=== PATIENT | male | born 1990 | race Caucasian/White ===

== ENCOUNTER 2023-10-10 20:15 | Inpatient (IN) | payer MEDICAID, OTHER ==
[~2023-10-10] VITALS: Ht 167.6 cm; Wt 61.2 kg
[2023-10-10 21:44] LABS: CLARITY URINE CLOUDY (CLEAR); COLOR URINE YELLOW (YELLOW); GLUCOSE URINE NEGATIVE (NEGATIVE); KETONES URINE TRACE (NEGATIVE); LEUKOCYTE ESTERASE URINE 3+ (NEGATIVE); NITRITE URINE NEGATIVE (NEGATIVE); OCCULT BLOOD URINE 3+ (NEGATIVE); PROTEIN URINE 1+ (NEGATIVE); SPECIFIC GRAVITY URINE 1.008 (1.005-1.030); UROBILINOGEN URINE 0.2 E.U./dL (0.2-1.0)
[2023-10-10 22:12] LABS: BACTERIA URINE 2+; SQUAMOUS EPITHELIAL CELL URINE FEW /lpf (RARE/1+)
[2023-10-10 22:13] LABS: WBC URINE 50-100 /hpf (0-2)
[2023-10-10] MEDS: ACETAMINOPHEN 325MG TABLET PO STA (22:31)
[2023-10-10] MEDS: KETOROLAC 30MG/ML VIAL IV STA (22:32)
[2023-10-10] MEDS: SODIUM CHLORIDE 0.9% 1000ML BAG (SEPSIS BOLUS) IV ONE (22:44)
[2023-10-10 23:25] LABS: HEMATOCRIT. 36.3 % (42.0-52.0); HEMOGLOBIN. 12.3 g/dL (14.0-18.0); MEAN CORPUSCULAR HEMOGLOBIN 30.6 pg (28.0-32.0); MEAN CORPUSCULAR HGB CONC 33.8 g/dL (31.0-37.0); MEAN CORPUSCULAR VOLUME 90.6 fL (80.0-94.0); MEAN PLATELET VOLUME 6.9 fl (7.4-10.4); PLATELET 244 x1000/uL (130-400); RED BLOOD CELL COUNT 4.01 mill/uL (4.7-6.1); RED CELL DISTRIBUTION WIDTH 13.6 % (11.6-14.6)
[2023-10-10 23:36] LABS: DIFFERENTIAL COMMENT 1
[2023-10-10 23:42] LABS: CHLORIDE 106 mEq/L (98-107); POTASSIUM 3.2 mEq/L (3.5-5.1); SODIUM 136 mEq/L (136-145)
[2023-10-10 23:43] LABS: CARBON DIOXIDE 25 mEq/L (21-32)
[2023-10-10 23:44] LABS: CALCIUM 8.4 mg/dL (8.7-10.4)
[2023-10-10 23:48] LABS: CREATININE 0.8 mg/dL (0.6-1.3); GLUCOSE 108 mg/dL (70-105)
[2023-10-10 23:49] LABS: UREA NITROGEN BLOOD 11 mg/dL (9-23)
[2023-10-10 23:50] LABS: ALANINE AMINOTRANSFERASE 16 IU/L (10-49); ALBUMIN 3.6 g/dL (3.2-4.8); ASPARTATE AMINOTRANSFERASE 15 IU/L (<34)
[2023-10-10 23:51] LABS: BILIRUBIN TOTAL 1.3 mg/dL (0.1-1.0); PROTEIN TOTAL 5.9 g/dL (6.0-8.3)
[2023-10-11 00:07] LABS: PLATELET ESTIMATE NORMAL
[2023-10-11] MEDS: ONDANSETRON HCL 4MG/2ML INJ IV STA (00:49)
[2023-10-11] MEDS: MORPHINE SULFATE 4 MG/ML INJ (FOR IV/IM USE) IV STA (00:50)
[2023-10-11] MEDS: CEFTRIAXONE 1GM/50ML 50 ML IV ONE (00:58)
[2023-10-11] MEDS: SODIUM CHLORIDE 0.9% 1,000 ML IV ONE (01:11)
[2023-10-11] MEDS: MORPHINE SULFATE 4 MG/ML INJ (FOR IV/IM USE) IV ONE (08:31)
[2023-10-11 10:30] VITALS: BP 110/64; PULSE 116; RESP 20; TEMP 99.7
[2023-10-11 12:00] VITALS: BP 107/62; PULSE 116; RESP 20; TEMP 102.3
[2023-10-11] MEDS ORDERED: ONDANSETRON HCL 4MG/2ML INJ IV PRN (12:15)
[2023-10-11] MEDS: SODIUM CHLORIDE 0.9% 1,000 ML IV SCH (13:05)
[2023-10-11] MEDS: ACETAMINOPHEN 325MG TABLET PO PRN (13:15)
[2023-10-11] MEDS: KETOROLAC 30MG/ML VIAL IV PRN (13:16)
[2023-10-11 16:00] VITALS: BP 110/77; PULSE 97; RESP 20; TEMP 98.2
[2023-10-11] MEDS: GENTAMICIN 120MG PREMIX 100 ML IV SCH (18:18)
[2023-10-11 18:45] VITALS: BP 110/64; PULSE 116; RESP 20; TEMP 99.7
[2023-10-11 20:00] VITALS: BP 95/46; PULSE 108; RESP 18; TEMP 99.3
[2023-10-12] VITALS (7 sets, daily range): BP systolic 97–131; BP diastolic 57–88; PULSE 72–117; RESP 18–20; TEMP 97.6–103.8
[2023-10-12 06:43] LABS: HEMATOCRIT. 37.4 % (42.0-52.0); HEMOGLOBIN. 12.7 g/dL (14.0-18.0); MEAN CORPUSCULAR HEMOGLOBIN 30.3 pg (28.0-32.0); MEAN CORPUSCULAR HGB CONC 33.9 g/dL (31.0-37.0); MEAN CORPUSCULAR VOLUME 89.2 fL (80.0-94.0); PLATELET 222 x1000/uL (130-400); RED BLOOD CELL COUNT 4.19 mill/uL (4.7-6.1); RED CELL DISTRIBUTION WIDTH 13.7 % (11.6-14.6); WHITE BLOOD COUNT 8.3 x1000/uL (4.5-11.0)
[2023-10-12 06:46] LABS: DIFFERENTIAL COMMENT 1
[2023-10-12 07:22] LABS: CARBON DIOXIDE 23 mEq/L (21-32); CHLORIDE 104 mEq/L (98-107); POTASSIUM 3.6 mEq/L (3.5-5.1); SODIUM 134 mEq/L (136-145)
[2023-10-12 07:28] LABS: CREATININE 0.9 mg/dL (0.6-1.3); GLUCOSE 103 mg/dL (70-105); UREA NITROGEN BLOOD 12 mg/dL (9-23)
[2023-10-12 12:01] LABS: CREATINE KINASE 35 IU/L (46-171)
[2023-10-12] MEDS: DILTIAZEM HCL 30MG TABLET PO SCH (13:44)
[2023-10-12 16:28] LABS: PLATELET ESTIMATE NORMAL
[2023-10-13] VITALS: BP 102/74; PULSE 88; RESP 18; TEMP 98.8
[2023-10-13 04:00] VITALS: BP 97/53; PULSE 85; RESP 18; TEMP 101.1
[2023-10-13 04:34] LABS: CALCIUM 9.4 mg/dL (8.7-10.4); CARBON DIOXIDE 22 mEq/L (21-32); CHLORIDE 103 mEq/L (98-107); POTASSIUM 3.4 mEq/L (3.5-5.1); SODIUM 133 mEq/L (136-145)
[2023-10-13 04:38] LABS: CREATININE 0.9 mg/dL (0.6-1.3); GLUCOSE 100 mg/dL (70-105)
[2023-10-13 04:40] LABS: UREA NITROGEN BLOOD 13 mg/dL (9-23)
[2023-10-13 04:44] LABS: GENTAMICIN RANDOM < 0.5 ug/mL
[2023-10-13 08:00] VITALS: BP 115/71; PULSE 85; RESP 18; TEMP 98.9
[2023-10-13 12:00] VITALS: BP 95/59; PULSE 83; RESP 20; TEMP 100
[2023-10-13 16:00] VITALS: BP 110/68; PULSE 81; RESP 20; TEMP 100
[2023-10-13 18:07] LABS: HEMATOCRIT. 37.7 % (42.0-52.0); HEMOGLOBIN. 12.8 g/dL (14.0-18.0); MEAN CORPUSCULAR HEMOGLOBIN 30.6 pg (28.0-32.0); MEAN CORPUSCULAR HGB CONC 33.8 g/dL (31.0-37.0); MEAN CORPUSCULAR VOLUME 90.3 fL (80.0-94.0); MEAN PLATELET VOLUME 7.8 fl (7.4-10.4); PLATELET 267 x1000/uL (130-400); RED BLOOD CELL COUNT 4.18 mill/uL (4.7-6.1); RED CELL DISTRIBUTION WIDTH 13.9 % (11.6-14.6); WHITE BLOOD COUNT 5.3 x1000/uL (4.5-11.0)
[2023-10-13 18:24] LABS: DIFFERENTIAL COMMENT 1
[2023-10-13 18:30] LABS: CARBON DIOXIDE 25 mEq/L (21-32); CHLORIDE 104 mEq/L (98-107); POTASSIUM 3.5 mEq/L (3.5-5.1); SODIUM 135 mEq/L (136-145)
[2023-10-13 18:31] LABS: CALCIUM 9.9 mg/dL (8.7-10.4)
[2023-10-13 18:35] LABS: CREATININE 0.9 mg/dL (0.6-1.3)
[2023-10-13 18:36] LABS: GLUCOSE 103 mg/dL (70-105); UREA NITROGEN BLOOD 14 mg/dL (9-23)
[2023-10-13 20:00] VITALS: BP 113/73; PULSE 80; RESP 18; TEMP 99.6
[2023-10-13 20:05] LABS: PLATELET ESTIMATE NORMAL
[2023-10-14] VITALS: BP 105/57; PULSE 90; RESP 18; TEMP 100.7
[2023-10-14 04:00] VITALS: BP 90/52; PULSE 63; RESP 18; TEMP 98.5
[2023-10-14 04:55] LABS: CHLORIDE 104 mEq/L (98-107); POTASSIUM 3.4 mEq/L (3.5-5.1); SODIUM 136 mEq/L (136-145)
[2023-10-14 04:56] LABS: CALCIUM 9.3 mg/dL (8.7-10.4); CARBON DIOXIDE 25 mEq/L (21-32)
[2023-10-14 05:01] LABS: CREATININE 0.9 mg/dL (0.6-1.3); GLUCOSE 102 mg/dL (70-105); UREA NITROGEN BLOOD 11 mg/dL (9-23)
[2023-10-14 05:33] LABS: HEMATOCRIT. 35.4 % (42.0-52.0); HEMOGLOBIN. 11.8 g/dL (14.0-18.0); MEAN CORPUSCULAR HEMOGLOBIN 29.7 pg (28.0-32.0); MEAN CORPUSCULAR HGB CONC 33.3 g/dL (31.0-37.0); MEAN CORPUSCULAR VOLUME 89.3 fL (80.0-94.0); MEAN PLATELET VOLUME 8.1 fl (7.4-10.4); PLATELET 260 x1000/uL (130-400); RED BLOOD CELL COUNT 3.97 mill/uL (4.7-6.1); RED CELL DISTRIBUTION WIDTH 13.9 % (11.6-14.6); WHITE BLOOD COUNT 4.6 x1000/uL (4.5-11.0)
[2023-10-14 06:16] LABS: DIFFERENTIAL COMMENT 1
[2023-10-14 07:59] VITALS: BP 112/77; PULSE 72; RESP 18; TEMP 100
[2023-10-14 12:00] VITALS: BP 106/68; PULSE 82; RESP 18; TEMP 100.4
[2023-10-14 13:32] LABS: PLATELET ESTIMATE NORMAL
[2023-10-14] MEDS: CEFTRIAXONE 1GM/50ML 50 ML IV SCH (14:23)
[2023-10-14 16:00] VITALS: BP 115/75; PULSE 81; RESP 20; TEMP 99
[2023-10-14 20:00] VITALS: BP 92/62; PULSE 76; RESP 18; TEMP 97.7
[2023-10-15] VITALS: BP 99/65; PULSE 77; RESP 20; TEMP 97.6
[2023-10-15 04:00] VITALS: BP 98/66; PULSE 63; RESP 19; TEMP 98
[2023-10-15 08:00] VITALS: BP 94/62; PULSE 61; RESP 19; TEMP 97.9
[2023-10-15 12:00] VITALS: BP 92/64; PULSE 68; RESP 19; TEMP 97.7
[2023-10-15 16:00] VITALS: BP 91/60; PULSE 71; RESP 19; TEMP 98.8
[2023-10-15 20:00] VITALS: BP 104/71; PULSE 67; RESP 18; TEMP 98
[2023-10-16] VITALS: BP 95/56; PULSE 55; RESP 18; TEMP 98
[2023-10-16 04:00] VITALS: BP 107/63; PULSE 63; RESP 18; TEMP 98.2
[2023-10-16 08:00] VITALS: BP 96/57; PULSE 58; RESP 18
[2023-10-16 12:00] VITALS: BP 98/67; PULSE 66; RESP 18; TEMP 99.9
[2023-10-16 16:00] VITALS: BP 99/68; PULSE 62; RESP 18; TEMP 98.6
[2023-10-16 20:00] VITALS: BP 94/57; PULSE 61; RESP 18; TEMP 97.2
[2023-10-17] VITALS: BP 92/66; PULSE 67; RESP 19; TEMP 98.3
[2023-10-17 04:00] VITALS: BP 93/58; PULSE 62; RESP 19; TEMP 98.3
[2023-10-17 08:00] VITALS: BP 139/78; PULSE 58; RESP 20; TEMP 99.3
[2023-10-17 12:00] VITALS: BP 130/73; PULSE 64; RESP 20; TEMP 99
[2023-10-17] MEDS ORDERED: ONDANSETRON 4MG ODT PO PRN (15:17)
[2023-10-17 15:53] LABS: BASOPHILS % 0.5 % (0.0-2.0); EOSINOPHILS % 2.2 % (0.0-5.0); HEMATOCRIT. 41.3 % (42.0-52.0); HEMOGLOBIN. 13.8 g/dL (14.0-18.0); MEAN CORPUSCULAR HEMOGLOBIN 30.3 pg (28.0-32.0); MEAN CORPUSCULAR HGB CONC 33.5 g/dL (31.0-37.0); MEAN CORPUSCULAR VOLUME 90.5 fL (80.0-94.0); MEAN PLATELET VOLUME 7.4 fl (7.4-10.4); MONOCYTES % 5.7 % (2.0-8.0); NEUTROPHILS % 68.6 % (40.0-76.0); PLATELET 524 x1000/uL (130-400); RED BLOOD CELL COUNT 4.56 mill/uL (4.7-6.1); RED CELL DISTRIBUTION WIDTH 14.4 % (11.6-14.6); WHITE BLOOD COUNT 7.1 x1000/uL (4.5-11.0)
[2023-10-17 15:54] LABS: CALCIUM 10.2 mg/dL (8.7-10.4); CARBON DIOXIDE 27 mEq/L (21-32); CHLORIDE 104 mEq/L (98-107); POTASSIUM 4.1 mEq/L (3.5-5.1); SODIUM 138 mEq/L (136-145)
[2023-10-17 15:59] LABS: CREATININE 0.9 mg/dL (0.6-1.3); GLUCOSE 89 mg/dL (70-105)
[2023-10-17 16:00] VITALS: BP 102/70; PULSE 55; RESP 17; TEMP 99.6
[2023-10-17 16:00] LABS: UREA NITROGEN BLOOD 17 mg/dL (9-23)
[2023-10-17 20:00] VITALS: BP 127/82; PULSE 84; RESP 20; TEMP 97.9
[2023-10-18] VITALS: BP 96/65; PULSE 58; RESP 20; TEMP 99.3
[2023-10-18 04:00] VITALS: BP 98/59; PULSE 57; RESP 20; TEMP 97.5
[2023-10-18 08:00] VITALS: BP 93/59; PULSE 50; RESP 16; TEMP 98.8
[2023-10-18 12:00] VITALS: BP 99/65; PULSE 61; RESP 16; TEMP 98.4
[2023-10-18 14:56] VITALS: BP 99/65; PULSE 61; TEMP 98.4; O2SAT 97
[2023-10-18] MEDS: CEFTRIAXONE 2GM/50ML 50 ML IV SCH (15:26)
[2023-10-18 16:00] VITALS: BP 97/66; PULSE 58; RESP 17; TEMP 98.1
== END 2023-10-18 16:30 | disposition home health service (06) | DRG 872 ==
LOC: ER 20:15 → 6WST 10-11 08:12 → 7WST 10-12 16:33 → 6EST 10-17 13:17
PROVIDERS: ADMIT Internal Medicine; ATTEND Internal Medicine
PROC: 02HV33Z Insertion of Infusion Device into Superior Vena Cava, Percutaneous Approach (ICD-10-PCS; principal; 2023-10-13)
PROC: B5181ZA Fluoroscopy of Superior Vena Cava using Low Osmolar Contrast, Guidance (ICD-10-PCS; 2023-10-13)
DX: A41.51 Sepsis due to Escherichia coli [E. coli] (principal); N12 Tubulo-interstitial nephritis, not specified as acute or chronic
CPT/HCPCS: 36415; 36573; 71045; 74176; 80048; 80053; 80170; 81003; 82550; 82962; 83605; 85025; 87077; 87186; 93005; 99291; C1725; J0696; J1580; J1885; J2270; J2405; J7030; J7060

== ENCOUNTER 2023-10-24 10:48 | Emergency (ER) | payer OTHER ==
[~2023-10-24] VITALS: Ht 170.2 cm; Wt 62.0 kg
[2023-10-24 10:58] VITALS: BP 109/70; PULSE 72; RESP 16; TEMP 98.6; O2SAT 99
== END 2023-10-25 01:15 | disposition left against medical advice (07) ==
LOC: ER 10:48
DX: T82.594D Other mechanical complication of infusion catheter, subsequent encounter (principal); Y92.89 Other specified places as the place of occurrence of the external cause
CPT/HCPCS: 99281; 99285